=== PATIENT | male | born 1955 | race Caucasian/White ===

== ENCOUNTER 2020-12-03 09:12 | Day surgery (SDC) | payer OTHER ==
[~2020-12-03] VITALS: Ht 172.7 cm; Wt 73.5 kg
[2020-12-03] MEDS ORDERED: LIDOCAINE 2% 100 MG/5 ML UJET TP ONE (10:53)
[2020-12-03] MEDS ORDERED: fentaNYL citrate 0.05 MG/ML VIAL ONE (10:53)
[2020-12-03] MEDS ORDERED: fentaNYL citrate 0.05 MG/ML VIAL IVP ONE (12:05)
== END 2020-12-03 12:27 | disposition home or self-care (01) ==
LOC: MDS 09:12 → MMU 09:17 → MDS 12:27
PROVIDERS: ATTEND Internal Medicine Gastroenterology
DX: Z12.11 Encounter for screening for malignant neoplasm of colon (principal); K64.8 Other hemorrhoids; Z79.899 Other long term (current) drug therapy
CPT/HCPCS: 45378; J3010